=== PATIENT | male | born 1970 | race American Indian/Alaskan Native ===

== ENCOUNTER 2016-06-17 13:06 | Emergency (ER) | payer OTHER ==
[2016-06-17 13:23] VITALS: BP 125/79
[2016-06-17 13:47] LABS: Basophils % (Auto) 0.4 % (0.0-1.8); Hematocrit 44.8 % (35.5-45.6); Hemoglobin 14.7 gm/dl (11.8-15.2); Mean Corpuscular HGB Conc 33 % (32-34); Mean Corpuscular Hemoglobin 31 pg (28-32); Mean Corpuscular Volume 96 fl (84-94); Platelet Count 147 K/mm3 (140-440); Red Blood Count 4.68 M/mm3 (3.65-5.03); Red Cell Distribution Width 14.8 % (13.2-15.2); White Blood Count 6.7 K/mm3 (4.5-11.0)
[2016-06-17 14:00] LABS: Anion Gap 19 mmol/L; BUN/Creatinine Ratio 4.28; Blood Urea Nitrogen 6 mg/dL (9-20); Calcium 7.6 mg/dL (8.4-10.2); Carbon Dioxide 20 mmol/L (22-30); Chloride 98.4 mmol/L (98-107); Glucose 138 mg/dL (75-100); Potassium 3.6 mmol/L (3.6-5.0); Sodium 134 mmol/L (137-145)
--- NOTE | 2016-06-18 07:20 | ED Elopement Review ---
ED Pt Elopement review - Results review Lab results: Laboratory Tests 06/17/16 06/17/16 06/17/16 13:29 13:29 16:35 WBC 6.7 RBC 4.68 Hgb 14.7 Hct 44.8 MCV 96 H MCH 31 MCHC 33 RDW 14.8 Plt Count 147 Lymph % (Auto) 31.1 [place] % (Auto) 11.5 H Eos % (Auto) 1.0 Baso % (Auto) 0.4 Lymph # 2.1 [place] # 0.8 Eos # 0.1 Baso # 0.0 Seg Neutrophils % 56.0 Seg Neutrophils # 3.8 Sodium 134 L Potassium 3.6 Chloride 98.4 Carbon Dioxide 20 L Anion Gap 19 BUN 6 L Creatinine 1.4 Estimated GFR > 60 BUN/Creatinine Ratio 4.28 Glucose 138 H Calcium 7.6 L Troponin T < 0.010 < 0.010 - Call Back decision Pt Call Back Decision: No action required
== END 2016-06-17 19:22 | disposition left against medical advice (07) ==
LOC: ED 13:06
DX: R07.9 Chest pain, unspecified (principal); M54.5 Low back pain; R19.7 Diarrhea, unspecified; Z53.21 Procedure and treatment not carried out due to patient leaving prior to being seen by health care provider
CPT/HCPCS: 36415; 80048; 84484; 85025; 93005; 93010

== ENCOUNTER 2017-01-19 23:50 | Emergency (ER) | payer MEDICARE, OTHER ==
--- NOTE | 2017-01-20 09:07 | Emergency Department Report ---
ED Psych HPI - General Chief Complaint: Psych Stated Complaint: MENTAL HEALTH Time Seen by Provider: 01/20/17 08:32 Source: patient, old records reviewed (last ED psychiatric visit June 2015) Mode of arrival: Ambulatory Limitations: No Limitations - History of Present Illness Initial Comments: 46 yo male with a past medical history paranoid schizophrenia, bipolar disorder , and medication noncompliance 2 months presents to the hospital with complaints of suicidal homicidal ideation 3 weeks. Patient also having auditory and visual hallucinations. Patient denies suicide plan. He wants to kill several friends and strangers. He admits to cocaine abuse last used 2 weeks ago, alcohol use last night, and recent marijuana use. No previous suicide attempts. No recent hospitalizations. Patient complains of generalized arthralgias that are moderate in intensity. - Related Data Home Medications Medication Instructions Recorded Confirmed Last Taken traZODone [Desyrel] 50 mg PO QHS PRN 12/21/13 06/23/15 2 Days Ago Previous Rx's Medication Instructions Recorded Last Taken Type Ibuprofen [Motrin] 800 mg PO Q8HR PRN #30 tablet 11/25/15 Unknown Rx traMADol [Ultram 50 MG tab] 50 mg PO Q6HR PRN #20 tablet 11/25/15 Unknown Rx Allergies Allergy/AdvReac Type Severity Reaction Status Date / Time risperidone [From Risperdal] Allergy Swelling Verified 06/22/15 14:57 ED Review of Systems ROS: Stated complaint: MENTAL HEALTH Other details as noted in HPI Comment: All other systems reviewed and negative Other: Constitutional: No fevers chills Eyes: No eye pain visual changes ENT: No ear pain or throat pain Neck: Denies pain Respiratory: Denies cough wheezing shortness of breath Cardiovascular: Denies chest pain, palpitations, syncope GI: Denies abdominal pain, nausea, vomiting, diarrhea : Denies dysuria, Musculoskeletal: As per HPI Skin: Denies rash, lesions, erythema Neurologic: Denies headache, numbness, weakness Psychiatric: as per hpi ED Past Medical Hx - Past Medical History Hx Psychiatric Treatment: Yes (multiple IP tx's / BIPOLAR / SCHIZOPHRENIA) - Social History Smoking Status: Current Every Day Smoker Substance Use Type: Alcohol, Cocaine, Marijuana - Medications Home Medications: Home Medications Medication Instructions Recorded Confirmed Last Taken Type traZODone [Desyrel] 50 mg PO QHS PRN 12/21/13 06/23/15 2 Days Ago History Ibuprofen [Motrin] 800 mg PO Q8HR PRN #30 tablet 11/25/15 Unknown Rx traMADol [Ultram 50 MG tab] 50 mg PO Q6HR PRN #20 tablet 11/25/15 Unknown Rx ED Physical Exam - General Limitations: No Limitations - Other Other exam information: General: No limitations, patient is alert in no acute distress Head exam: Atraumatic, normocephalic Eyes exam: Normal appearance ENT: Moist mucous membrane, normal oropharynx Neck exam: Normal inspection, full range of motion, no meningismus nontender Respiratory exam: Clear to auscultation bilateral, no wheezes, rales, crackles Cardiovascular: Normal rate and rhythm, normal heart sounds Abdomen: Soft, nondistended, and nontender, with normal bowel sounds, no rebound, or guarding Extremity: Full range of motion normal inspection no deformity Back: Normal Inspection, full range of motion, no tenderness Neurologic: Alert, oriented x3, cranial nerves intact, no motor or sensory deficit Psychiatric: normal affect, normal mood Skin: Warm, dry, intact ED Course Vital Signs 01/19/17 23:56 Temperature 99.2 F Pulse Rate 81 Respiratory 17 Rate Blood Pressure 125/82 O2 Sat by Pulse 99 Oximetry - Consultations Consultation #1: 01/20/17 09:06 Mental health consult ordered. 1013 and transfer forms have been signed ED Medical Decision Making - Lab Data Result diagrams: 01/20/17 09:32 01/20/17 09:32 Lab Results 01/20/17 01/20/17 01/20/17 Range/Units 01:59 01:59 09:32 WBC 5.8 (4.5-11.0) K/mm3 RBC 4.28 (3.65-5.03) M/mm3 Hgb 13.8 (11.8-15.2) gm/dl Hct 42.2 (35.5-45.6) % MCV 99 H (84-94) fl MCH 32 (28-32) pg MCHC 33 (32-34) % RDW 14.4 (13.2-15.2) % Plt Count 235 (140-440) K/mm3 Sodium (137-145) mmol/L Potassium (3.6-5.0) mmol/L Chloride (98-107) mmol/L Carbon Dioxide (22-30) mmol/L Anion Gap mmol/L BUN (9-20) mg/dL Creatinine (0.8-1.5) mg/dL Estimated GFR ml/min BUN/Creatinine Ratio % Glucose (75-100) mg/dL Calcium (8.4-10.2) mg/dL Total Creatine Kinase (55-170) units/L Urine Color Yellow (Yellow) Urine Turbidity Clear (Clear) Urine pH 6.0 (5.0-7.0) Ur Specific [place] 1.024 (1.003-1.030) Urine Protein <15 mg/dl (Negative) mg/dL Urine Glucose (UA) Neg (Negative) mg/dL Urine Ketones Neg (Negative) mg/dL Urine Blood Neg (Negative) Urine Nitrite Neg (Negative) Urine Bilirubin Neg (Negative) Urine Urobilinogen 2.0 (<2.0) mg/dL Ur Leukocyte Esterase Neg (Negative) Urine WBC (Auto) 1.0 (0.0-6.0) /HPF Urine RBC (Auto) 2.0 (0.0-6.0) /HPF Urine Mucus Few /HPF Urine Opiates Screen Presumptive negative Urine Methadone Screen Presumptive negative Ur Barbiturates Screen Presumptive negative Ur Phencyclidine Scrn Presumptive negative Ur Amphetamines Screen Presumptive negative U Benzodiazepines Scrn Presumptive negative Urine Cocaine Screen Presumptive negative U Marijuana (THC) Screen Presumptive positive Drugs of Abuse Note Disclamer Plasma/Serum Alcohol (0-0.07) gm% 01/20/17 01/20/17 01/20/17 Range/Units 09:32 09:32 09:32 WBC (4.5-11.0) K/mm3 RBC (3.65-5.03) M/mm3 Hgb (11.8-15.2) gm/dl Hct (35.5-45.6) % MCV (84-94) fl MCH (28-32) pg MCHC (32-34) % RDW (13.2-15.2) % Plt Count (140-440) K/mm3 Sodium 140 (137-145) mmol/L Potassium 4.6 (3.6-5.0) mmol/L Chloride 103.0 (98-107) mmol/L Carbon Dioxide 27 (22-30) mmol/L Anion Gap 15 mmol/L BUN 15 (9-20) mg/dL Creatinine 0.9 (0.8-1.5) mg/dL Estimated GFR > 60 ml/min BUN/Creatinine Ratio 16.66 % Glucose 77 (75-100) mg/dL Calcium 8.7 (8.4-10.2) mg/dL Total Creatine Kinase 652 H (55-170) units/L Urine Color (Yellow) Urine Turbidity (Clear) Urine pH (5.0-7.0) Ur Specific [place] (1.003-1.030) Urine Protein (Negative) mg/dL Urine Glucose (UA) (Negative) mg/dL Urine Ketones (Negative) mg/dL Urine Blood (Negative) Urine Nitrite (Negative) Urine Bilirubin (Negative) Urine Urobilinogen (<2.0) mg/dL Ur Leukocyte Esterase (Negative) Urine WBC (Auto) (0.0-6.0) /HPF Urine RBC (Auto) (0.0-6.0) /HPF Urine Mucus /HPF Urine Opiates Screen Urine Methadone Screen Ur Barbiturates Screen Ur Phencyclidine Scrn Ur Amphetamines Screen U Benzodiazepines Scrn Urine Cocaine Screen U Marijuana (THC) Screen Drugs of Abuse Note Plasma/Serum Alcohol < 0.01 (0-0.07) gm% - Medical Decision Making 1013 and transfer form signed. Patient is medically clear for psychiatric admission. - Differential Diagnosis si, hi, schizophrenia, bipolar, psychosis Critical Care Time: No Critical care attestation.: If time is entered above; I have spent that time in minutes in the direct care of this critically ill patient, excluding procedure time. ED Disposition Clinical Impression: Suicidal ideation, Auditory hallucinations, Non-compliant behavior, Polysubstance abuse, Medical clearance for psychiatric admission Disposition: [id number]/TX-65 PSY HOSP/PSY UNIT Is pt being admited?: No Condition: Stable Time of Disposition: 13:01 (awaiting transport)
[2017-01-20 09:56] LABS: Urine Drugs of Abuse Note Disclamer
[2017-01-20 09:57] LABS: Hematocrit 42.2 % (35.5-45.6); Hemoglobin 13.8 gm/dl (11.8-15.2); Mean Corpuscular HGB Conc 33 % (32-34); Mean Corpuscular Hemoglobin 32 pg (28-32); Mean Corpuscular Volume 99 fl (84-94); Platelet Count 235 K/mm3 (140-440); Red Blood Count 4.28 M/mm3 (3.65-5.03); Red Cell Distribution Width 14.4 % (13.2-15.2); White Blood Count 5.8 K/mm3 (4.5-11.0)
[2017-01-20 10:13] LABS: Anion Gap 15 mmol/L; BUN/Creatinine Ratio 16.66; Blood Urea Nitrogen 15 mg/dL (9-20); Calcium 8.7 mg/dL (8.4-10.2); Carbon Dioxide 27 mmol/L (22-30); Glucose 77 mg/dL (75-100); Potassium 4.6 mmol/L (3.6-5.0); Sodium 140 mmol/L (137-145)
[2017-01-20 10:18] LABS: Bilirubin,Urine NEG (Negative); Blood,Urine NEG (Negative); Ketones,Urine NEG (Negative); Leukocyte Esterase,Urine NEG (Negative); Mucus,Urine FEW /HPF; Nitrite,Urine NEG (Negative); Protein,Urine <15 mg/dL mg/dL (Negative)
[2017-01-20] MEDS ORDERED: ATIVAN ONE (20:28)
[2017-01-20] MEDS ORDERED: COGENTIN ONE (20:29)
[2017-01-20] MEDS ORDERED: RisperDAL ONE (20:30)
[2017-01-20] MEDS ORDERED: REMERON ONE (20:30)
--- NOTE | 2017-01-21 15:38 | Consultation ---
History of Present Illness - Reason for Consult Consult date: 01/21/17 Reason for consult: Mental Health Evaluation Requesting physician: DEJAN DENSON - Chief Complaint Chief complaint: "I need major help" - History of Present Psychiatric Illness 46 yo male with a past medical history paranoid schizophrenia, bipolar disorder , and medication noncompliance 2 months presents to the hospital with complaints of suicidal homicidal ideation 3 weeks. Today patient is calm, cooperative, but anxious during the assessment. He stated that he feel like people from his past are out to get him. Also, he stated that someone is touching his genital area when sleeping. He stated that it feel like someone "twisting his skin." He stated that he hear voices often telling him to kill the people who are out to get him. He stated taking every type of antipsychotic medication for his mental illness. He stated that he takes Saphris. He stated that he took Remeron and Trazodone in the past for sleep that didn't work. He stated having suicidal thoughts the past several days for no reason. Patient would not confirm or deny SI's. Patient denies HI's. Patient acknowledged a mental health hx of bipolar/schizophrenia. He denies a poor appetite, but admit to erratic sleep. He denies recreational drug use, but positive for marijuana. She denies excessive alcohol consumption (etoh). Medications and Allergies Allergies Allergy/AdvReac Type Severity Reaction Status Date / Time risperidone [From Risperdal] Allergy Swelling Verified 06/22/15 14:57 Home Medications Medication Instructions Recorded Confirmed Last Taken Type traZODone [Desyrel] 50 mg PO QHS PRN 12/21/13 06/23/15 2 Days Ago History Ibuprofen [Motrin] 800 mg PO Q8HR PRN #30 tablet 11/25/15 Unknown Rx traMADol [Ultram 50 MG tab] 50 mg PO Q6HR PRN #20 tablet 11/25/15 Unknown Rx Past psychiatric history - Past Medical History Past Medical History: No medical history Past Surgical History: No surgical history - past Psychiatric treatment and history Psych: Bipolar, Schizophrenia psychiatric treatment history: Multiple inpatient psy settings. Denies a fam psy hx. - Social History Social history: Lives alone, other ([employer] graduate) Mental Status Exam - Vital signs Last Vital Signs Temp 98.0 F 01/21/17 08:35 Pulse 60 01/21/17 08:35 Resp 20 01/21/17 08:35 BP 100/64 01/21/17 08:35 Pulse Ox 100 01/21/17 08:35 - Exam Narrative exam: ROS: (+) psychosis MSE: Appearance: calm, cooperative, anxious Behavior: regular eye contact Speech: regular rate and tone Mood: "not well" Affect: labile Thought Process: circumstantial Thought Content: denies and VH's Motor Activity: ambulatory Cognition: A/Ox 3 Insight: limited Judgment: limited Results Result Diagrams: 01/20/17 09:32 01/20/17 09:32 All other labs normal. Assessment and Plan Assessment and plan: Impression: Historical Dx: Schizophrenia/Bipolar DO. Unspecified Mood DO with psychotic features. Substance Use DO (marijuana) Today patient is calm, cooperative, but anxious during the assessment. Active AH's. Passive SI's. Positive for marijuana. DDx: Schizoaffective DO Recommendation/Plan: Continue 1013 with placement to inpatient psy services. Start Depakote 500 mg PO BID for mood and Klonopin 0.5 mg PO HS for anxiety/ sleep consolidation.
[2017-01-21 16:58] LABS: Alanine Aminotransferase 20 units/L (7-56); Alkaline Phosphatase 38 units/L (35-129)
--- NOTE | 2017-01-23 10:50 | Progress Note ---
Subjective - Reason for Consult Consult date: 01/23/17 Reason for consult: Psychiatry Follow-up - Chief Complaint Chief complaint: "I slept last night" 46 yo male with a past medical history paranoid schizophrenia, bipolar disorder , and medication noncompliance 2 months presents to the hospital with complaints of suicidal homicidal ideation 3 weeks. Today patient is calm and cooperative, but denies anxiety. He stated that he got 4 hours of sleep more than usual. He stated that the voices have not decreased or increased in the last 2 days. He stated that the voices interfere with him starting sleep. He stated that his SI has decreased. He denies HI's and VH's. Patient was observed eating his breakfast during the assessment. He denies any side effects of his medications. Mental Status Exam - Vital signs Last Vital Signs Temp 97.7 F 01/22/17 20:00 Pulse 79 01/22/17 20:00 Resp 18 01/22/17 20:00 BP 137/89 01/22/17 20:00 Pulse Ox 98 01/22/17 20:00 - Exam Narrative exam: MSE: Appearance: calm, cooperative Behavior: regular eye contact Speech: regular rate and tone Mood: "okay" Affect: labile Thought Process: circumstantial Thought Content: denies HI's and VH's Motor Activity: ambulatory Cognition: A/Ox 3 Insight: variable Judgment: variable Assessment and Plan Impression: Historical Dx: Schizophrenia/Bipolar DO. Unspecified Mood DO with psychotic features. Substance Use DO (marijuana) Today patient is calm and cooperative during the assessment. Active AH's. Passive SI's. Positive for marijuana. Recommendation/Plan: Continue 1013 with placement to inpatient psy services. Start Abilify 5 mg PO Daily for psychotic symptoms/mood. Continue Depakote 500 mg PO BID for mood and Klonopin 0.5 mg PO HS for anxiety/sleep consolidation. Discussed possible metabolic side effects of Abilify with patient.
[2017-01-23] MEDS: ABILIFY PO SCH (22:53)
[2017-01-24] MEDS: ABILIFY PO SCH (09:53)
--- NOTE | 2017-01-24 12:28 | Progress Note ---
Subjective - Reason for Consult Consult date: 01/24/17 Reason for consult: Psychiatry Follow-up - Chief Complaint Chief complaint: "I feel better" 46 yo male with a past medical history paranoid schizophrenia, bipolar disorder , and medication noncompliance 2 months presents to the hospital with complaints of suicidal homicidal ideation 3 weeks. Today patient is calm and cooperative during the assessment. He stated that he finally got some needed rest last night. He stated that the voices have "really" decreased and he denies his genitals being twisted. He stated previously that he felt like someone was twisting his genital at night that interfered with his sleep. He denies SI/HI's and VH's. He denies any side effects of his medications. Mental Status Exam - Vital signs Last Vital Signs Temp 98.8 F 01/24/17 09:41 Pulse 97 H 01/24/17 09:41 Resp 18 01/24/17 09:41 BP 93/51 01/24/17 09:41 Pulse Ox 97 01/24/17 09:41 - Exam Narrative exam: MSE: Appearance: calm, cooperative Behavior: regular eye contact Speech: regular rate and tone Mood: "okay" Affect: congruent to mood Thought Process: linear Thought Content: denies SI/HI's and VH's, intermittent AH's Motor Activity: ambulatory Cognition: A/Ox 3 Insight: variable Judgment: variable Assessment and Plan Impression: Historical Dx: Schizophrenia/Bipolar DO. Unspecified Mood DO with psychotic features. Substance Use DO (marijuana) Today patient is calm and cooperative during the assessment. Intermittent AH's. Positive for marijuana. Recommendation/Plan: Continue 1013 with placement to inpatient psy services. Continue Abilify 5 mg PO Daily for psychotic symptoms/mood, Depakote 500 mg PO BID for mood, and Klonopin 0.5 mg PO HS for anxiety/sleep consolidation. Discussed possible metabolic side effects of Abilify with patient.
[2017-01-24 18:47] VITALS: BP 110/71
== END 2017-01-24 18:46 ==
LOC: ED 23:50 → EEVIPCON 23:50 → ED 01-24 18:46
DX: R45.851 Suicidal ideations (principal); R44.0 Auditory hallucinations; F19.10 Other psychoactive substance abuse, uncomplicated; F17.200 Nicotine dependence, unspecified, uncomplicated; F14.10 Cocaine abuse, uncomplicated; F12.10 Cannabis abuse, uncomplicated; F31.9 Bipolar disorder, unspecified; F20.9 Schizophrenia, unspecified
CPT/HCPCS: 36415; 80048; 80307; 81001; 82550; 84075; 84450; 84460; 85027; 99285; G0480; 80320

== ENCOUNTER 2017-08-03 20:47 | Emergency (ER) | payer SELFPAY ==
[2017-08-03 20:59] VITALS: BP 124/85
--- NOTE | 2017-08-04 01:11 | Emergency Department Report ---
- General Chief Complaint: Upper Respiratory Infection Stated Complaint: COLD,SCARLET FEVER Time Seen by Provider: 08/04/17 00:31 Source: patient, family Mode of arrival: Ambulatory Limitations: No Limitations - History of Present Illness Initial Comments: 46-year-old male with a past medical history of bipolar disorder and schizophrenia presents to the hospital complains of nasal congestion, runny nose , sinus pain and pressure that is moderate in intensity. Symptoms 1 month. He denies that he has an allergy to pollen. No reports of fever or cough. Mild shortness of breath reported. - Related Data Home Medications Medication Instructions Recorded Confirmed Last Taken traZODone [Desyrel] 50 mg PO QHS PRN 12/21/13 01/23/17 2 Days Ago ~06/20/15 Previous Rx's Medication Instructions Recorded Last Taken Type Ibuprofen [Motrin] 800 mg PO Q8HR PRN #30 tablet 11/25/15 Unknown Rx traMADol [Ultram 50 MG tab] 50 mg PO Q6HR PRN #20 tablet 11/25/15 Unknown Rx Amoxicillin/Potassium Clav 1 each PO BID #14 tablet 08/04/17 Unknown Rx [Augmentin 875-125 Tablet] Loratadine/Pseudoephedrine 1 tab PO Q12H #20 tablet 08/04/17 Unknown Rx [Claritin-D 12HR] Allergies Allergy/AdvReac Type Severity Reaction Status Date / Time risperidone [From Risperdal] Allergy Swelling Verified 06/22/15 14:57 ED Review of Systems ROS: Stated complaint: COLD,SCARLET FEVER Other details as noted in HPI Comment: All other systems reviewed and negative ED Past Medical Hx - Past Medical History Previous Medical History?: No Hx Psychiatric Treatment: Yes (multiple IP tx's / BIPOLAR / SCHIZOPHRENIA) - Surgical History Past Surgical History?: No - Social History Smoking Status: Current Every Day Smoker Substance Use Type: None - Medications Home Medications: Home Medications Medication Instructions Recorded Confirmed Last Taken Type traZODone [Desyrel] 50 mg PO QHS PRN 12/21/13 01/23/17 2 Days Ago History ~06/20/15 Ibuprofen [Motrin] 800 mg PO Q8HR PRN #30 tablet 11/25/15 01/23/17 Unknown Rx traMADol [Ultram 50 MG tab] 50 mg PO Q6HR PRN #20 tablet 11/25/15 01/23/17 Unknown Rx Amoxicillin/Potassium Clav 1 each PO BID #14 tablet 08/04/17 Unknown Rx [Augmentin 875-125 Tablet] Loratadine/Pseudoephedrine 1 tab PO Q12H #20 tablet 08/04/17 Unknown Rx [Claritin-D 12HR] ED Physical Exam - General Limitations: No Limitations - Other Other exam information: General: No limitations, patient is alert in no acute distress Head exam: Atraumatic, normocephalic Eyes exam: Normal appearance, frontal sinus and maxillary sinus tenderness, nasal congestion ENT: Moist mucous membrane, normal oropharynx Neck exam: Normal inspection, full range of motion, no meningismus nontender Respiratory exam: Clear to auscultation bilateral, no wheezes, rales, crackles Cardiovascular: Normal rate and rhythm, normal heart sounds Abdomen: Soft, nondistended, and nontender, with normal bowel sounds, no rebound, or guarding Extremity: Full range of motion normal inspection no deformity Back: Normal Inspection, full range of motion, no tenderness Neurologic: Alert, oriented x3, cranial nerves intact, no motor or sensory deficit Psychiatric: normal affect, normal mood Skin: Warm, dry, intact ED Course Vital Signs 08/03/17 20:55 Temperature 98.7 F Pulse Rate 93 H Blood Pressure 124/85 O2 Sat by Pulse 97 Oximetry ED Medical Decision Making - Medical Decision Making Plan to treat patient for sinusitis with decongestion as well. Follow-up will be encouraged - Differential Diagnosis sinusitis, viral syndrome, seasonal allergies Critical Care Time: No Critical care attestation.: If time is entered above; I have spent that time in minutes in the direct care of this critically ill patient, excluding procedure time. ED Disposition Clinical Impression: Sinusitis Disposition: -01 TO HOME OR SELFCARE Is pt being admited?: No Does the pt Need Aspirin: No Condition: Stable Instructions: Sinusitis (ED) Additional Instructions: Take the medication as prescribed. Return if symptoms worsen. Follow-up with the clinic provided. Use the good Rx discount information provided to make a medication more affordable Prescriptions: Amoxicillin/Potassium Clav [Augmentin 875-125 Tablet] 1 each PO BID #14 tablet Loratadine/Pseudoephedrine [Claritin-D 12HR] 1 tab PO Q12H #20 tablet Referrals: [facility] [Provider Group] - 3-5 Days Time of Disposition: :12
== END 2017-08-04 01:19 | disposition home or self-care (01) ==
LOC: ED 20:47
DX: J32.9 Chronic sinusitis, unspecified (principal); F17.200 Nicotine dependence, unspecified, uncomplicated; F31.9 Bipolar disorder, unspecified; F20.9 Schizophrenia, unspecified; Z88.8 Allergy status to other drugs, medicaments and biological substances
CPT/HCPCS: 99282

== ENCOUNTER 2017-11-27 23:10 | Emergency (ER) | payer OTHER ==
[2017-11-28 00:31] LABS: Basophils % (Auto) 0.4 % (0.0-1.8); Eosinophils # (Auto) 0.1 K/mm3 (0.0-0.4); Eosinophils % (Auto) 1.4 % (0.0-4.3); Hematocrit 42.6 % (35.5-45.6); Hemoglobin 14.9 gm/dl (11.8-15.2); Lymphocytes # (Auto) 3.3 K/mm3 (1.2-5.4); Lymphocytes % (Auto) 30.9 % (13.4-35.0); Mean Corpuscular HGB Conc 35 % (32-34); Mean Corpuscular Hemoglobin 33 pg (28-32); Mean Corpuscular Volume 95 fl (84-94); Monocytes # (Auto) 0.5 K/mm3 (0.0-0.8); Monocytes % (Auto) 4.9 % (0.0-7.3); Platelet Count 226 K/mm3 (140-440); Red Blood Count 4.49 M/mm3 (3.65-5.03); Red Cell Distribution Width 13.6 % (13.2-15.2)
[2017-11-28 00:45] LABS: BUN/Creatinine Ratio 15; Blood Urea Nitrogen 16 mg/dL (9-20); Calcium 8.9 mg/dL (8.4-10.2); Hemolysis Index 7
[2017-11-28 01:01] LABS: Bilirubin,Urine NEG (Negative); Blood,Urine NEG (Negative); Color,Urine Yellow (Yellow); Hyaline Casts,Urine 1 /LPF; Protein,Urine <15 mg/dL mg/dL (Negative); Urobilinogen,Urine < 2.0 mg/dL (<2.0)
[2017-11-28 01:06] LABS: Amphetamine Screen,Urine PRESUMPTIVE NEGATIVE; Benzodiazepines Screen,Urine PRESUMPTIVE NEGATIVE; Cocaine Screen,Urine PRESUMPTIVE NEGATIVE; Methadone Screen,Urine PRESUMPTIVE NEGATIVE
[2017-11-28 01:25] LABS: Opiate Screen,Urine PRESUMPTIVE NEGATIVE
[2017-11-28 01:50] LABS: Cannabinoid Screen,Urine PRESUMPTIVE POSITIVE
--- NOTE | 2017-11-28 05:17 | Emergency Department Report ---
ED Psych HPI - General Chief Complaint: Psych Stated Complaint: MH Time Seen by Provider: 11/28/17 05:15 Source: patient Mode of arrival: Ambulatory - History of Present Illness Initial Comments: Patient is 47-year-old man with history of bipolar disorder and paranoid schizophrenia, presents with medication noncompliance over past week or two, reporting that meds do not work for him, with other unspecified difficulties obtaining meds, and with resulting increased symptoms of feelings of suicidal thoughts, with increased anxiety and depression. He reports having feelings of wanting to hurt other people, but has not actually carried out plans, also feels increasingly depressed, with increased feelings of wanting to . He also reports having auditory and visual hallucinations, with visions of people being tortured around him, as well as accompanying auditory hallucinations, but no voices are speaking to him, and there are no commands to kill himself, although he does currently feel suicidal. He is not formulated or initiated a plan, but still feels desperate, and still has feelings of suicide. Past medical history is significant for bipolar disorder and schizophrenia, but otherwise is one of good general health otherwise, denies history of diabetes, hypertension, coronary artery disease, or stroke or other neurologic disorders, the patient does smoke cigarettes daily. He has had a past history of alcohol as well as cocaine abuse, but there is no recent history of alcohol or recreational drug use. He feels mildly agitated, requesting restarting of his effects or an trazodone, and feels that he would benefit from track localization , but does not feel completely out of control. - Related Data Home Medications Medication Instructions Recorded Confirmed Last Taken traZODone [Desyrel] 50 mg PO QHS PRN 12/21/13 01/23/17 2 Days Ago ~06/20/15 Previous Rx's Medication Instructions Recorded Last Taken Type Ibuprofen [Motrin] 800 mg PO Q8HR PRN #30 tablet 11/25/15 Unknown Rx traMADol [Ultram 50 MG tab] 50 mg PO Q6HR PRN #20 tablet 11/25/15 Unknown Rx Amoxicillin/Potassium Clav 1 each PO BID #14 tablet 08/04/17 Unknown Rx [Augmentin 875-125 Tablet] Loratadine/Pseudoephedrine 1 tab PO Q12H #20 tablet 08/04/17 Unknown Rx [Claritin-D 12HR] Allergies Allergy/AdvReac Type Severity Reaction Status Date / Time risperidone [From Risperdal] Allergy Swelling Verified 11/27/17 23:52 ED Review of Systems ROS: Stated complaint: MH Other details as noted in HPI Comment: All other systems reviewed and negative Constitutional: no symptoms reported Eyes: denies: eye pain, eye discharge, vision change ENT: denies: ear pain, throat pain Respiratory: denies: cough, shortness of breath, wheezing Cardiovascular: denies: chest pain, palpitations Endocrine: no symptoms reported Gastrointestinal: denies: abdominal pain, nausea, diarrhea Genitourinary: denies: urgency, dysuria Musculoskeletal: denies: back pain, joint swelling, arthralgia Skin: denies: rash, lesions Neurological: denies: headache, weakness, paresthesias Psychiatric: anxiety, depression, auditory hallucinations, visual hallucinations , homicidal thoughts, suicidal thoughts Hematological/Lymphatic: denies: easy bleeding, easy bruising ED Past Medical Hx - Past Medical History Hx Arthritis: Yes Hx Psychiatric Treatment: Yes (multiple IP tx's / BIPOLAR / SCHIZOPHRENIA) - Surgical History Past Surgical History?: No - Social History Smoking Status: Current Every Day Smoker Substance Use Type: Alcohol, Marijuana - Medications Home Medications: Home Medications Medication Instructions Recorded Confirmed Last Taken Type traZODone [Desyrel] 50 mg PO QHS PRN 12/21/13 01/23/17 2 Days Ago History ~06/20/15 Ibuprofen [Motrin] 800 mg PO Q8HR PRN #30 tablet 11/25/15 01/23/17 Unknown Rx traMADol [Ultram 50 MG tab] 50 mg PO Q6HR PRN #20 tablet 11/25/15 01/23/17 Unknown Rx Amoxicillin/Potassium Clav 1 each PO BID #14 tablet 08/04/17 Unknown Rx [Augmentin 875-125 Tablet] Loratadine/Pseudoephedrine 1 tab PO Q12H #20 tablet 08/04/17 Unknown Rx [Claritin-D 12HR] ED Physical Exam - General Limitations: No Limitations General appearance: alert, in no apparent distress - Head Head exam: Present: atraumatic, normocephalic - Eye Eye exam: Present: PERRL, EOMI - ENT ENT exam: Present: normal exam, mucous membranes moist - Neck Neck exam: Present: normal inspection, full ROM. Absent: tenderness, meningismus - Respiratory Respiratory exam: Present: normal lung sounds bilaterally. Absent: respiratory distress, wheezes, rales, rhonchi - Cardiovascular Cardiovascular Exam: Present: regular rate, normal heart sounds - GI/Abdominal GI/Abdominal exam: Present: soft, normal bowel sounds. Absent: tenderness, guarding - Rectal Rectal exam: Present: deferred - Extremities Exam Extremities exam: Present: normal inspection, full ROM. Absent: tenderness - Neurological Exam Neurological exam: Present: alert, oriented X3, CN II-XII intact. Absent: motor sensory deficit - Psychiatric Psychiatric exam: Present: depressed, flat affect, homicidal ideation, suicidal ideation. Absent: agitated, manic - Skin Skin exam: Present: warm, intact ED Course Vital Signs 11/27/17 23:52 Temperature 37.4 C Pulse Rate 76 O2 Sat by Pulse 95 Oximetry ED Medical Decision Making - Lab Data Result diagrams: 11/28/17 00:04 11/28/17 00:04 - Medical Decision Making Patient with recurrent history of medication noncompliance for bipolar disorder and paranoid schizophrenia, presents with recurrent symptoms, haven't been noncompliant with medicine for the past week or 2, but with no recent history of drug abuse. He is primarily concerned, having thoughts of hurting other people, having auditory and visual hallucinations, with delusional activity as well, with a sense of desperation, hopelessness, and sense of wanting to . He is generally required inpatient admission for stabilization and reproduction of his medications, and I concur that he needs same again, the patient placed under 1013 confinement, with consultation for mental health to follow. Critical Care Time: No Critical care attestation.: If time is entered above; I have spent that time in minutes in the direct care of this critically ill patient, excluding procedure time. ED Disposition Clinical Impression: Depression with suicidal ideation, Auditory hallucinations Disposition: [id number]/TX-65 PSY HOSP/PSY UNIT Is pt being admited?: No Does the pt Need Aspirin: No Condition: Stable Referrals: PRIMARY CARE, [Primary Care Provider] - 3-5 Days Time of Disposition: 06:10
[2017-11-28] MEDS ORDERED: DESYREL PO ONE (06:04)
[2017-11-28] MEDS ORDERED: EFFEXOR XR PO ONE (06:04)
[2017-11-28] MEDS ORDERED: ATIVAN PO ONE (06:04)
--- NOTE | 2017-11-28 13:44 | Consultation ---
History of Present Illness - Reason for Consult Consult date: 11/28/17 Reason for consult: Mental Health Evaluation Requesting physician: AMANDA RACHEL - Chief Complaint Chief complaint: "I am suicidal because of the voices" - History of Present Psychiatric Illness 47-year-old AA male presenting to the ER for depression, SI's and hearing voices. This patient is known to me. Today the patient is calm and cooperative during the assessment. He stated that he have not slept in 4 days. He stated that he have not taken his medication in a week (Trazodone/Effexor). He stated that he does not take a medication that can "stop the voices." He stated riding his bicycle constantly the past couple days because he is experiencing lots of energy. He stated that he felt like he didn't need any sleep. He stated that the voices has caused him to be scared. He cannot explain why he is scared when asked. Also, the patient is wearing work glove, he stated that his hands are not "right." He refused to let me assess his hands. He denies any trauma to his hands when asked. He endorsed being suicidal without a plan. He denies previous suicide attempts in the past. He denies HI's and VH's. He acknowledged erratic sleep, but denies a poor appetite. He admitted to smoking marijuana often. Medications and Allergies Allergies Allergy/AdvReac Type Severity Reaction Status Date / Time risperidone [From Risperdal] Allergy Swelling Verified 11/27/17 23:52 Home Medications Medication Instructions Recorded Confirmed Last Taken Type traZODone [Desyrel] 50 mg PO QHS PRN 12/21/13 01/23/17 2 Days Ago History ~06/20/15 Ibuprofen [Motrin] 800 mg PO Q8HR PRN #30 tablet 11/25/15 01/23/17 Unknown Rx traMADol [Ultram 50 MG tab] 50 mg PO Q6HR PRN #20 tablet 11/25/15 01/23/17 Unknown Rx Amoxicillin/Potassium Clav 1 each PO BID #14 tablet 08/04/17 Unknown Rx [Augmentin 875-125 Tablet] Loratadine/Pseudoephedrine 1 tab PO Q12H #20 tablet 08/04/17 Unknown Rx [Claritin-D 12HR] Past psychiatric history - Past Medical History Past Medical History: other (Arthritis) Past Surgical History: No surgical history - past Psychiatric treatment and history Psych: Bipolar psychiatric treatment history: Multiple inpatient psy settings. Denies a psy hx. - Social History Social history: lives with family Mental Status Exam - Vital signs Last Vital Signs Temp 99.3 F 11/27/17 23:52 Pulse 76 11/27/17 23:52 Resp BP Pulse Ox 95 11/27/17 23:52 - Exam Narrative exam: MSE: Appearance: calm, cooperative Behavior: regular eye contact Speech: regular rate and tone Mood: "depressed and tired" Affect: congruent to mood Thought Process: circumstantial Thought Content: denies HI's and VH's, delusional, paranoia Motor Activity: sitting up in bed Cognition: A/O x 3 Insight: variable Judgment: variable Results Result Diagrams: 11/28/17 00:04 11/28/17 00:04 Abnormal lab results 11/28/17 11/28/17 11/28/17 Range/Units 00:04 00:04 00:04 MCV 95 H (84-94) fl MCH 33 H (28-32) pg MCHC 35 H (32-34) % Salicylates < 0.3 L (2.8-20.0) mg/dL Acetaminophen < 5.0 L (10.0-30.0) ug/mL All other labs normal. Assessment and Plan Assessment and plan: Impression: Unspecified Mood DO with psy features. Cannabis Use DO. Possibly manic. Today the patient is calm and cooperative during the assessment. The patient endorses SI's. DDx: R/O Schizoaffective DO, Bipolar DO with psychosis, R/O MDD with psychosis , R/O Substance Induced Mood/Psychotic DO Recommendation/Plan: Continue 1013 with placement to inpatient psy services. Start Zyprexa 5 mg PO HS for mood/psychsis and Benadryl 25 mg PO HS for sleep. Possibly start home medications (Trazodone/Effexor) in 24 hours. Reassess for manic symptoms in the AM.
[2017-11-28 20:00] VITALS: BP 113/58
[2017-11-28] MEDS ORDERED: BENADRYL PO SCH (22:00)
[2017-11-28] MEDS ORDERED: DESYREL PO SCH (22:00)
[2017-11-29] MEDS ORDERED: EFFEXOR XR PO SCH (10:00)
== END 2017-11-28 20:06 ==
LOC: ED 23:10 → EEVIPCON 23:10 → ED 11-28 20:06
DX: F31.9 Bipolar disorder, unspecified (principal); R45.851 Suicidal ideations; F20.9 Schizophrenia, unspecified; F39 Unspecified mood [affective] disorder; F12.10 Cannabis abuse, uncomplicated; M19.90 Unspecified osteoarthritis, unspecified site; F17.200 Nicotine dependence, unspecified, uncomplicated; Z88.8 Allergy status to other drugs, medicaments and biological substances
CPT/HCPCS: 36415; 80048; 80307; 81001; 85025; 99285; G0480; 80320

== ENCOUNTER 2017-12-23 21:13 | Emergency (ER) | payer SELFPAY ==
[2017-12-23 22:06] LABS: Hematocrit 42.2 % (35.5-45.6); Hemoglobin 13.9 gm/dl (11.8-15.2); Mean Corpuscular HGB Conc 33 % (32-34); Mean Corpuscular Hemoglobin 32 pg (28-32); Mean Corpuscular Volume 97 fl (84-94); Platelet Count 228 K/mm3 (140-440); Red Blood Count 4.35 M/mm3 (3.65-5.03); Red Cell Distribution Width 14.4 % (13.2-15.2)
[2017-12-23 22:20] LABS: Alanine Aminotransferase 16 units/L (7-56); BUN/Creatinine Ratio 9; Blood Urea Nitrogen 12 mg/dL (9-20); Calcium 9.3 mg/dL (8.4-10.2); Hemolysis Index 2
[2017-12-24 03:28] VITALS: BP 138/64
--- NOTE | 2017-12-24 05:53 | Emergency Department Report ---
ED GI Bleed HPI - General Chief complaint: GI Bleed Stated complaint: BLOOD IN STOOL Time Seen by Provider: 12/24/17 04:05 Source: patient Mode of arrival: Ambulatory Limitations: No Limitations - History of Present Illness Initial comments: Patient has had 2 episodes of bloody stool when he wipes today. No pain appreciated. It concerned him so he came to the ER for evaluation. No blood thinners. He is at this problem once before earlier this year and it spontaneously resolved. No nausea/vomiting/fevers/abdominal pain. Severity scale (0 -10): 4 - Related Data Home Medications Medication Instructions Recorded Confirmed Last Taken traZODone [Desyrel] 50 mg PO QHS PRN 12/21/13 01/23/17 2 Days Ago ~06/20/15 Previous Rx's Medication Instructions Recorded Last Taken Type Ibuprofen [Motrin] 800 mg PO Q8HR PRN #30 tablet 11/25/15 Unknown Rx traMADol [Ultram 50 MG tab] 50 mg PO Q6HR PRN #20 tablet 11/25/15 Unknown Rx Amoxicillin/Potassium Clav 1 each PO BID #14 tablet 08/04/17 Unknown Rx [Augmentin 875-125 Tablet] Loratadine/Pseudoephedrine 1 tab PO Q12H #20 tablet 08/04/17 Unknown Rx [Claritin-D 12HR] Allergies Allergy/AdvReac Type Severity Reaction Status Date / Time risperidone [From Risperdal] Allergy Swelling Verified 11/27/17 23:52 ED Review of Systems ROS: Stated complaint: BLOOD IN STOOL Other details as noted in HPI Comment: All other systems reviewed and negative Gastrointestinal: hematochezia ED Past Medical Hx - Past Medical History Hx Arthritis: Yes Hx Psychiatric Treatment: Yes (multiple IP tx's / BIPOLAR / SCHIZOPHRENIA) - Surgical History Past Surgical History?: No - Social History Smoking Status: Current Every Day Smoker Substance Use Type: None, Marijuana - Medications Home Medications: Home Medications Medication Instructions Recorded Confirmed Last Taken Type traZODone [Desyrel] 50 mg PO QHS PRN 12/21/13 01/23/17 2 Days Ago History ~06/20/15 Ibuprofen [Motrin] 800 mg PO Q8HR PRN #30 tablet 11/25/15 01/23/17 Unknown Rx traMADol [Ultram 50 MG tab] 50 mg PO Q6HR PRN #20 tablet 11/25/15 01/23/17 Unknown Rx Amoxicillin/Potassium Clav 1 each PO BID #14 tablet 08/04/17 Unknown Rx [Augmentin 875-125 Tablet] Loratadine/Pseudoephedrine 1 tab PO Q12H #20 tablet 08/04/17 Unknown Rx [Claritin-D 12HR] ED Physical Exam - General Limitations: No Limitations General appearance: alert, in no apparent distress - Head Head exam: Present: atraumatic, normocephalic - Eye Eye exam: Present: normal appearance - ENT ENT exam: Present: mucous membranes moist - Neck Neck exam: Present: normal inspection - Respiratory Respiratory exam: Present: normal lung sounds bilaterally. Absent: respiratory distress - Cardiovascular Cardiovascular Exam: Present: regular rate, normal rhythm. Absent: systolic murmur, diastolic murmur, rubs, gallop - GI/Abdominal GI/Abdominal exam: Present: soft, normal bowel sounds. Absent: distended, tenderness, guarding - Rectal Rectal exam: Present: deferred, normal inspection, normal rectal tone, heme (-) stool. Absent: hemorrhoids, tenderness - Extremities Exam Extremities exam: Present: normal inspection - Back Exam Back exam: Present: normal inspection - Neurological Exam Neurological exam: Present: alert, oriented X3 - Psychiatric Psychiatric exam: Present: normal affect, normal mood - Skin Skin exam: Present: warm, dry, intact, normal color. Absent: rash ED Course Vital Signs 12/23/17 12/24/17 12/24/17 21:47 02:54 03:27 Temperature 98.4 F 97.4 F L Pulse Rate 76 64 58 L Respiratory 18 18 16 Rate Blood Pressure 107/74 129/77 Blood Pressure 138/64 [Left] O2 Sat by Pulse 99 98 Oximetry ED Medical Decision Making - Lab Data Result diagrams: 12/23/17 21:55 12/23/17 21:55 - Medical Decision Making 47-year-old male with no significant past medical history that presents to the ER with rectal bleeding. Vital signs are stable. Lab work is unremarkable. Rectal exam shows no evidence of bleeding at this point time. Likely patient suffered a minor mucosal tear, which contributed to hematochezia. I do not think the patient needs to see GI this point time. I will start him on stool softeners and have him follow-up with his family doctor for reevaluation. - Differential Diagnosis coagulopathy, hemorrhoids, lower GI bleed, malignancy, anal fissure Critical care attestation.: If time is entered above; I have spent that time in minutes in the direct care of this critically ill patient, excluding procedure time. ED Disposition Clinical Impression: Hematochezia Disposition: - TO HOME OR SELFCARE Is pt being admited?: No Does the pt Need Aspirin: No Condition: Stable Instructions: Rectal Bleeding (ED) Additional Instructions: Please start taking a daily over the counter stool softener. Follow up with your family doctor in 2-3 days if symptoms fail to improve. Referrals: NATA EMERSON MD [Staff Physician] - 3-5 Days Forms: Accompanied Note
== END 2017-12-24 06:13 | disposition home or self-care (01) ==
LOC: ED 21:13
DX: K92.1 Melena (principal); M19.90 Unspecified osteoarthritis, unspecified site; F31.9 Bipolar disorder, unspecified; F20.9 Schizophrenia, unspecified; F17.200 Nicotine dependence, unspecified, uncomplicated; F12.10 Cannabis abuse, uncomplicated; Z88.8 Allergy status to other drugs, medicaments and biological substances
CPT/HCPCS: 36415; 80053; 85027; 99283

== ENCOUNTER 2018-01-03 00:49 | Emergency (ER) | payer SELFPAY ==
[2018-01-03 06:37] VITALS: BP 130/80
--- NOTE | 2018-01-03 06:52 | Emergency Department Report ---
ED ENT HPI - General Chief complaint: Earache Stated complaint: LT EAR PAIN Time Seen by Provider: 01/03/18 06:48 Source: patient Mode of arrival: Ambulatory Limitations: No Limitations - History of Present Illness Initial comments: Patient is a 39-year-old Citizen Of [place] male who presents for left ear pain 1 week pain has gradually gotten worse now at 7/10 aching with nocturnal fever patient is not sure MAXIMUM TEMPERATURE as he hasn't checked it hasn't is afebrile. Triage has history of recurrent atrial symptoms are exacerbated by physician there are no relieving factors complaint: ear pain Onset/Timin -: days(s) Location: L ear Severity: moderate Severity scale (0 -10): 6 Quality: aching Consistency: constant Improves with: none Worsens with: position, movement Associated Symptoms: fever, tinnitus, discharge from ear - Related Data Home Medications Medication Instructions Recorded Confirmed Last Taken traZODone [Desyrel] 50 mg PO QHS PRN 12/21/13 01/23/17 2 Days Ago ~06/20/15 Previous Rx's Medication Instructions Recorded Last Taken Type Ibuprofen [Motrin] 800 mg PO Q8HR PRN #30 tablet 11/25/15 Unknown Rx traMADol [Ultram 50 MG tab] 50 mg PO Q6HR PRN #20 tablet 11/25/15 Unknown Rx Amoxicillin/Potassium Clav 1 each PO BID #14 tablet 08/04/17 Unknown Rx [Augmentin 875-125 Tablet] Loratadine/Pseudoephedrine 1 tab PO Q12H #20 tablet 08/04/17 Unknown Rx [Claritin-D 12HR] Amoxicillin/Potassium Clav 1 each PO BIDDIAB #20 tablet 01/03/18 Unknown Rx [Augmentin 875-125 Tablet] Ibuprofen 800 mg PO TID PRN #30 tablet 01/03/18 Unknown Rx Allergies Allergy/AdvReac Type Severity Reaction Status Date / Time risperidone [From Risperdal] Allergy Swelling Verified 11/27/17 23:52 ED Dental HPI - General Chief complaint: Earache Stated complaint: LT EAR PAIN Time Seen by Provider: 01/03/18 06:48 Source: patient Mode of arrival: Ambulatory Limitations: No Limitations - Related Data Home Medications Medication Instructions Recorded Confirmed Last Taken traZODone [Desyrel] 50 mg PO QHS PRN 12/21/13 01/23/17 2 Days Ago ~06/20/15 Previous Rx's Medication Instructions Recorded Last Taken Type Ibuprofen [Motrin] 800 mg PO Q8HR PRN #30 tablet 11/25/15 Unknown Rx traMADol [Ultram 50 MG tab] 50 mg PO Q6HR PRN #20 tablet 11/25/15 Unknown Rx Amoxicillin/Potassium Clav 1 each PO BID #14 tablet 08/04/17 Unknown Rx [Augmentin 875-125 Tablet] Loratadine/Pseudoephedrine 1 tab PO Q12H #20 tablet 08/04/17 Unknown Rx [Claritin-D 12HR] Amoxicillin/Potassium Clav 1 each PO BIDDIAB #20 tablet 01/03/18 Unknown Rx [Augmentin 875-125 Tablet] Ibuprofen 800 mg PO TID PRN #30 tablet 01/03/18 Unknown Rx Allergies Allergy/AdvReac Type Severity Reaction Status Date / Time risperidone [From Risperdal] Allergy Swelling Verified 11/27/17 23:52 ED Review of Systems ROS: Stated complaint: LT EAR PAIN Other details as noted in HPI Constitutional: denies: chills, fever Eyes: denies: eye pain, eye discharge, vision change ENT: ear pain, congestion Respiratory: denies: cough, shortness of breath, wheezing Cardiovascular: denies: chest pain, palpitations Endocrine: no symptoms reported Gastrointestinal: denies: abdominal pain, nausea, diarrhea Genitourinary: denies: urgency, dysuria Musculoskeletal: denies: back pain, joint swelling, arthralgia Skin: denies: rash, lesions Neurological: denies: headache, weakness, paresthesias Psychiatric: denies: anxiety, depression Hematological/Lymphatic: denies: easy bleeding, easy bruising ED Past Medical Hx - Past Medical History Hx Arthritis: Yes Hx Psychiatric Treatment: Yes (multiple IP tx's / BIPOLAR / SCHIZOPHRENIA) - Social History Smoking Status: Current Every Day Smoker Substance Use Type: Marijuana - Medications Home Medications: Home Medications Medication Instructions Recorded Confirmed Last Taken Type traZODone [Desyrel] 50 mg PO QHS PRN 12/21/13 01/23/17 2 Days Ago History ~06/20/15 Ibuprofen [Motrin] 800 mg PO Q8HR PRN #30 tablet 11/25/15 01/23/17 Unknown Rx traMADol [Ultram 50 MG tab] 50 mg PO Q6HR PRN #20 tablet 11/25/15 01/23/17 Unknown Rx Amoxicillin/Potassium Clav 1 each PO BID #14 tablet 08/04/17 Unknown Rx [Augmentin 875-125 Tablet] Loratadine/Pseudoephedrine 1 tab PO Q12H #20 tablet 08/04/17 Unknown Rx [Claritin-D 12HR] Amoxicillin/Potassium Clav 1 each PO BIDDIAB #20 tablet 01/03/18 Unknown Rx [Augmentin 875-125 Tablet] Ibuprofen 800 mg PO TID PRN #30 tablet 01/03/18 Unknown Rx ED Physical Exam - General Limitations: No Limitations General appearance: alert, in no apparent distress - Head Head exam: Present: atraumatic, normocephalic - Eye Eye exam: Present: normal appearance - Expanded ENT Exam Expanded TM/Canal exam: Erythema: Right TM, Left TM, Effusion: Right TM, Loss of Landmarks: Left TM, Canal Discharge: Left TM, Canal Tenderness: Left TM Mouth exam: Absent: trismus Throat exam: Positive: normal inspection. Negative: tonsillar erythema, tonsillomegaly, tonsillar exudate, R peritonsillar mass, L peritonsillar mass - Neck Neck exam: Present: normal inspection, full ROM. Absent: lymphadenopathy, thyromegaly - Respiratory Respiratory exam: Absent: wheezes, rhonchi, chest wall tenderness - Cardiovascular Cardiovascular Exam: Present: regular rate - GI/Abdominal GI/Abdominal exam: Present: soft, normal bowel sounds - Rectal Rectal exam: Present: deferred - Extremities Exam Extremities exam: Present: normal inspection - Back Exam Back exam: Present: normal inspection - Neurological Exam Neurological exam: Present: alert, oriented X3, CN II-XII intact, normal gait, reflexes normal - Psychiatric Psychiatric exam: Present: normal affect, normal mood - Skin Skin exam: Present: warm, dry, intact, normal color. Absent: rash ED Course Vital Signs 01/03/18 01/03/18 03:32 06:29 Temperature 98.4 F Pulse Rate 73 72 Respiratory 18 18 Rate Blood Pressure 129/84 Blood Pressure 130/80 [Right] O2 Sat by Pulse 100 97 Oximetry ED Medical Decision Making - Medical Decision Making This is acute otitis media recurrent Treatment for same Augmentin and ibuprofen patient verbalizes agreement and understanding and signed with follow-up PCP in 2-3 days for Critical care attestation.: If time is entered above; I have spent that time in minutes in the direct care of this critically ill patient, excluding procedure time. ED Disposition Clinical Impression: AOM (acute otitis media) Qualifiers: Otitis media type: serous Laterality: left Recurrence: recurrent Qualified Code (s): H65.05 - Acute serous otitis media, recurrent, left ear Disposition: - TO HOME OR SELFCARE Is pt being admited?: No Does the pt Need Aspirin: No Condition: Good Instructions: Otitis Media (ED) Prescriptions: Amoxicillin/Potassium Clav [Augmentin 875-125 Tablet] 1 each PO BIDDIAB #20 tablet Ibuprofen 800 mg PO TID PRN #30 tablet PRN Reason: pain fever Referrals: [facility] [place] [Outside] - 3-5 Days Forms: Work/School Release Form(ED) Time of Disposition: 06:59
== END 2018-01-03 07:21 | disposition home or self-care (01) ==
LOC: ED 00:49
DX: H65.05 Acute serous otitis media, recurrent, left ear (principal); M19.90 Unspecified osteoarthritis, unspecified site; F31.9 Bipolar disorder, unspecified; F20.9 Schizophrenia, unspecified; F17.200 Nicotine dependence, unspecified, uncomplicated; F12.10 Cannabis abuse, uncomplicated; Z79.899 Other long term (current) drug therapy; Z88.8 Allergy status to other drugs, medicaments and biological substances
CPT/HCPCS: 99282